=== PATIENT | female | born 1945 | race Caucasian/White ===

== ENCOUNTER 2016-11-03 11:49 | Emergency (ER) | payer BC, MEDICARE ==
--- NOTE | 2016-11-03 13:53 | RAD ---
INDICATION: Cough and shortness of breath COMPARISON: None TECHNIQUE: PA and lateral views of the chest were obtained. FINDINGS: The heart and mediastinum are normal in size and contour. The lungs are grossly clear. There is no evidence of large pleural effusion. Degenerative changes of the thoracic spine includes loss of intervertebral disc height. The bones are otherwise normal for the patient's age. There is no radiographic evidence of free air beneath the diaphragm IMPRESSION: No radiographic evidence of acute cardiopulmonary disease.
[2016-11-03 14:14] LABS: Hematocrit 46 % (35-47); Hemoglobin 15.2 g/dl (12.0-16.0); Mean Corpuscular HGB Conc 33 g/dl (31-36); Mean Corpuscular Hemoglobin 31 pg (27-31); Mean Corpuscular Volume 95 fL (80-97); Mean Platelet Volume 7 um3 (7.4-10.4); Red Blood Count 4.84 10^6/ul (4.0-5.4); Red Cell Distribution Width 13 % (10.5-15); White Blood Count 7.7 10^3/ul (3.5-10.8)
[2016-11-03 14:33] LABS: BUN/Creatinine Ratio 10.1 (8-20); Calcium 9.4 mg/dL (8.6-10.3); EGFR African American 92.5 (>60); EGFR Non-African American 71.9 (>60); Potassium 4.1 mmol/L (3.5-5.0); Total Bilirubin 1.1 mg/dL (0.2-1.0)
[2016-11-03 15:44] VITALS: BP 116/73
--- NOTE | 2016-11-03 19:02 | ED ---
Maddison Dupont Edward, scribed for Valdemar Cabezas MD on 11/03/16 at 1219 . HPI Febrile Illness - HPI Summary HPI Summary: 71 y/o female presents to ED c/o nonproductive cough starting a couple of weeks ago and a fever this morning. The cough has not improved. The cough gets worse in the car and when she lays down. Associated sx: postnasal drip, scratch on finger from cat a couple of days ago, lockjaw a couple of mornings ago that has since resolved. Denies CP, wheezing. The cough started after the pt de-greased an engine. The patient recently moved to [place] from [place]. PMHx collapsed lung. No PMHx DM, HTN, HLD, asthma, or seasonal allergies. - History of Current Complaint Chief Complaint: EDShortnessOfBreath Time Seen by Provider: 11/03/16 12:15 Hx Obtained From: Patient Onset/Duration: Started Weeks Ago Aggravating Factors: Other: - In the car, laying down Associated Signs and Symptoms: Other: - Cough for a couple o fweeks. Scratch on finger from cat, lockjaw days ago (resolved). Denies CP, wheezing - Allergy/Home Medications Allergies/Adverse Reactions: Allergies Allergy/AdvReac Type Severity Reaction Status Date / Time Penicillins Allergy Unknown Verified 11/03/16 12:27 Reaction Details PMH/Surg Hx/FS Hx/Imm Hx Previously Healthy: No Endocrine/Hematology History: Denies: Hx Diabetes, Other Endocrine/Hematological Disorders Cardiovascular History: Denies: Hx Myocardial Infarction Respiratory History: Reports: Other Respiratory Problems/Disorders - Collapsed lung Infectious Disease History: Denies: Traveled Outside the [place] in Last 30 Days - Family History Known Family History: Positive: Cardiac Disease - CHF - father, Other - Stroke - mother - Social History Occupation: Employed Full-time - Self-employed Lives: With Family - Lives here 6 months/year and in [place] for 6 months/year Alcohol Use: None Hx Substance Use: No Substance Use Type: Reports: None Hx Tobacco Use: No Smoking Status (MU): Never Smoked Tobacco Review of Systems Positive: Fever Eyes: Negative ENT: Other - Lockjaw a couple of days ago (resolved) Cardiovascular: Negative Negative: Chest Pain Positive: Cough, Other - No wheezing Gastrointestinal: Negative Genitourinary: Negative Musculoskeletal: Negative Skin: Other - Scratch on finger from cat Neurological: Negative Psychological: Normal All Other Systems Reviewed And Are Negative: Yes Physical Exam - Summary Physical Exam Summary: The patient is thin in no acute distress and in no acute pain. The skin is warm and dry and skin color reflects adequate perfusion. HEENT: The head is normocephalic and atraumatic. The pupils are equal and reactive. The conjunctivae are clear and without drainage. There is rhinorrhea. Nares are patent. Mouth reveals moist mucous membranes and the throat is without erythema and exudate. The external ears are intact. The ear canals are patent and without drainage. The tympanic membranes are intact. Neck is supple with full range of motion and non-tender. There are no carotid bruits. There is no neck vein distension. There is no noise in the neck. Respiratory: Chest is non-tender. Lungs are clear to auscultation and there are diminished breath sounds on the L side. Cardiovascular: Hear is regular rate and rhythm. There is no murmur or rub auscultated. There is no peripheral edema and pulses are symmetrical and equal. Abdomen: The abdomen is soft and non-tender. There are normal bowel sounds heard in all four quadrants and there is no organomegaly palpated. Musculoskeletal: There is no back pain noted. Extremities are non-tender with full range of motion. There is good capillary refill. There is no peripheral edema or calf tenderness elicited. Neurological: Patient is alert and oriented to person, place and time. The patient has symmetrical motor strength in all four extremities. Cranial nerves are grossly intact. Deep tendon reflexes are symmetrical and equal in all four extremities. Psychiatric: The patient has an appropriate affect and does not exhibit any anxiety or depression. Triage Information Reviewed: Yes Vital Signs On Initial Exam: Initial Vitals Temp Pulse Resp BP Pulse Ox 100.2 F 105 16 116/78 98 11/03/16 11:52 11/03/16 11:52 11/03/16 11:52 11/03/16 11:52 11/03/16 11:52 Vital Signs Reviewed: Yes Diagnostics - Vital Signs Vital Signs Temp Pulse Resp BP Pulse Ox 11/03/16 11:52 100.2 F 105 16 116/78 98 - Laboratory Lab Results: Lab Results 11/03/16 11/03/16 11/03/16 Range/Units 13:55 13:55 13:55 WBC 7.7 (3.5-10.8) 10^3/ul RBC 4.84 (4.0-5.4) 10^6/ul Hgb 15.2 (12.0-16.0) g/dl Hct 46 (35-47) % MCV 95 (80-97) fL MCH 31 (27-31) pg MCHC 33 (31-36) g/dl RDW 13 (10.5-15) % Plt Count 351 (150-450) 10^3/ul MPV 7 L (7.4-10.4) um3 Neut % (Auto) 84.0 H (38-83) % Lymph % (Auto) 9.4 L (25-47) % [place] % (Auto) 5.8 (1-9) % Eos % (Auto) 0.3 (0-6) % Baso % (Auto) 0.5 (0-2) % Absolute Neuts (auto) 6.5 (1.5-7.7) 10^3/ul Absolute Lymphs (auto) 0.7 L (1.0-4.8) 10^3/ul Absolute Monos (auto) 0.4 (0-0.8) 10^3/ul Absolute Eos (auto) 0 (0-0.6) 10^3/ul Absolute Basos (auto) 0 (0-0.2) 10^3/ul Absolute Nucleated RBC 0.01 10^3/ul Nucleated RBC % 0.1 Sodium 133 (133-145) mmol/L Potassium 4.1 (3.5-5.0) mmol/L Chloride 100 L (101-111) mmol/L Carbon Dioxide 25 (22-32) mmol/L Anion Gap 8 (2-11) mmol/L BUN 8 (6-24) mg/dL Creatinine 0.79 (0.51-0.95) mg/dL Est GFR ( Amer) 92.5 (>60) Est GFR (Non-Af Amer) 71.9 (>60) BUN/Creatinine Ratio 10.1 (8-20) Glucose 101 H (70-100) mg/dL Lactic Acid 1.1 (0.5-2.0) mmol/L Calcium 9.4 (8.6-10.3) mg/dL Total Bilirubin 1.10 H (0.2-1.0) mg/dL AST 40 H (13-39) U/L ALT 38 (7-52) U/L Alkaline Phosphatase 229 H (34-104) U/L Total Protein 8.0 (6.4-8.9) g/dL Albumin 4.0 (3.2-5.2) g/dL Globulin 4.0 (2-4) g/dL Albumin/Globulin Ratio 1.0 (1-3) Result Diagrams: 11/03/16 13:55 11/03/16 13:55 Lab Statement: Any lab studies that have been ordered have been reviewed, and results considered in the medical decision making process. - Radiology CXR Xray Interpretation: No Acute Changes - No radiographic evidence of acute cardiopulmonary disease. Radiology Interpretation Completed By: Radiologist Re-Evaluation - Re-Evaluation 1 Re-Evaluation Time: 15:20 - Discussed test results and CXR Course/Dx - Course Assessment/Plan: 71 y/o female presents to ED c/o nonproductive cough starting a couple of weeks ago and a fever this morning. The cough has not improved. The cough gets worse in the car and when she lays down. Associated sx: postnasal drip, scratch on finger from cat a couple of days ago, lockjaw a couple of mornings ago that has since resolved. Denies CP, wheezing. The cough started after the pt de-greased an engine. The patient recently moved to [place] from [place]. PMHx collapsed lung. No PMHx DM, HTN, HLD, asthma, or seasonal allergies. CXR SHOWS No radiographic evidence of acute cardiopulmonary disease. Pt will be d/c home with a prescription and will be instructed to f/u with PCP. - Febrile Illness Differential Diagnoses: Pneumonia, Other: - sinusitis, pneumonitis, bronchitis, fever - Diagnoses Provider Diagnoses: Bronchitis Discharge - Discharge Plan Condition: Stable Disposition: HOME Prescriptions: Azithromycin TAB* [Zithromax TAB (Z-MORGAN) 250 mg #6 tabs] 2 tab PO .TODAY, THEN 1 DAILY #1 morgan Guaifenesin-Codeine [Guaiatussin AC 100-10 mg/5Ml] 1 syp PO Q4HR #120 syp MDD 30 ml Patient Education Materials: Acute Bronchitis (ED) Referrals: [facility] [place]] - 3 Days (Please f/u in 2-3 days) The documentation as recorded by the rufinaibMaddison perea Edward accurately reflects the service I personally performed and the decisions made by me, Valdemar Cabezas MD.
== END 2016-11-03 15:40 | disposition home or self-care (01) ==
LOC: ED 11:49
DX: J40 Bronchitis, not specified as acute or chronic (principal); R05 Cough
CPT/HCPCS: 36415; 71020; 80053; 83605; 85025; 87040; 99282